=== PATIENT | male | born 1965 | race African-American/Black ===

== ENCOUNTER → 2021-06-15 | Outpatient (CLI) | payer OTHER ==
[~2021-06-15] MED LIST: ALBUTEROL2.5 MG/0.5 INH; ALLERGY RELIEF25 MG PO; AMOX-CLAV 500-1 EACH PO; BIOFREEZE118 ML T; COREG12.5 M1 PO; Clopidogrel75 MG PO; GOOD SENSE ACID20 MG PEG; GUAIFENESIN-DM 15 ML PEG; HYDROXYZINE HCL25 MG PEG; Ipratropium Brom3 ML INH; LACTULOSE20 GM/30 M PO; LEVOFLOXACIN500 MG PO; MIDODRINE HCL10 MG PO; MIDODRINE HCL5 M1 PO; MIRTAZAPINE15 M2 PO; NEURONTIN100 MG PO; ONDANSETRON HYDR4 MG PO; OXYCODONE HCL5 M1 PEG; PERFOROMIS20 MCG/2 M INH; PULMICORT0.25 MG/2 INH; REGLAN10 M1 PEG; RENVELA800 MG PO; SIMETHICONE 1 ML1 ML PEG; TYLENOL325 M3 PO
[2021-06-15 11:36] VITALS: BP 112/49
[2021-06-15 11:50] VITALS: BP 123/61
[2021-06-15 12:05] VITALS: BP 131/67
[2021-06-15 12:50] VITALS: BP 132/59
[2021-06-15 13:49] VITALS: BP 129/60
[2021-06-15 14:25] VITALS: BP 127/66
== END | disposition home or self-care (01) ==
LOC: TRNFUSION 01:06
PROVIDERS: ATTEND Internal Medicine Nephrology
DX: D64.9 Anemia, unspecified (principal); I13.2 Hypertensive heart and chronic kidney disease with heart failure and with stage 5 chronic kidney disease, or end stage renal disease; I50.9 Heart failure, unspecified; E11.22 Type 2 diabetes mellitus with diabetic chronic kidney disease; N18.6 End stage renal disease; Z99.2 Dependence on renal dialysis; E11.69 Type 2 diabetes mellitus with other specified complication; I25.10 Atherosclerotic heart disease of native coronary artery without angina pectoris; I25.2 Old myocardial infarction; E78.5 Hyperlipidemia, unspecified; J44.9 Chronic obstructive pulmonary disease, unspecified; K21.9 Gastro-esophageal reflux disease without esophagitis; Z86.16 Personal history of COVID-19; Z87.891 Personal history of nicotine dependence; Z98.890 Other specified postprocedural states